=== PATIENT | female | born 1985 | race Caucasian/White ===

== ENCOUNTER 2016-07-23 05:25 | Emergency (ER) | payer OTHER ==
[~2016-07-23 05:25] MED LIST: BACTRIM DS TABL1 TA1 PO; BACTRIM DS TABL1 TAB PO; CIPRO PO; DOXYCYCLINE PO; ELIMITE60 GM TOP; FLAGYL PO; FLEXERIL PO; METRONIDAZOLE PO; VICODIN 5/500 T1 TAB PO; VOLTAREN75 MG PO; ZITHROMAX PO
== END 2016-07-23 05:50 | disposition home or self-care (01) ==
LOC: CED 05:25
DX: O99.89 Other specified diseases and conditions complicating pregnancy, childbirth and the puerperium (principal); O99.331 Smoking (tobacco) complicating pregnancy, first trimester; K04.7 Periapical abscess without sinus; F17.210 Nicotine dependence, cigarettes, uncomplicated
CPT/HCPCS: 99282; 99283